=== PATIENT | male | born 1980 | race Hispanic/Latino ===

== ENCOUNTER 2025-07-04 08:52 | Emergency (ER) | payer OTHER, SELFPAY ==
[2025-07-04 09:00] VITALS: BP 153/97; PULSE 60; RESP 17; TEMP 36.5; O2SAT 100
--- NOTE | 2025-07-04 10:31 | ED.GENADULT ---
HPI - General Adult General Chief complaint: Eye Problems Stated complaint: piece of fiberglass in R. eye Time Seen by Provider: 07/04/25 09:37 History of Present Illness HPI narrative: 45-year-old male presents to the emergency department for evaluation for foreign body and the right eye. 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 Patient was having some irritation of the right eye and felt that it was persistent. Patient denies any change in vision Related Data Allergies Allergy/AdvReac Type Severity Reaction Status Date / Time No Known Allergies Allergy Mild Verified 08/22/10 11:40 Review of Systems Review of Systems: All systems reviewed & are unremarkable except as noted in HPI and below Exam Narrative: APPEARANCE: Well appearing, no pain, no distress, well-nourished. HEAD: normocephalic, atraumatic. EYES: Metallic foreign body and the 7 o'clock position of the outer edge of the cornea. After removal the foreign body rust ring does still remain this is not overlying the pupil. NOSE: Normal no drainage EARS:TMS clear with good light reflex. THROAT: Pharynx clear, no exudate. NECK: Supple. No adenopathy, no masses. RESPIRATORY: Airway patent, respirations nonlabored. Clear to auscultation bilaterally, no rales, rhonchi, wheezing. CARDIOVASCULAR: Regular rate and rhythm without murmurs rubs or gallops. ABDOMINAL: Soft, nontender, nondistended, normal bowel sounds MUSCULOSKELETAL: Moves all extremities. Strength/ROM intact, No edema, No calf tenderness. NEURO: Alert. Cranial nerves II through XII intact. Good gait. Good coordination Course Vital Signs Vital signs: Vital Signs Temperature 97.7 F 07/04/25 09:00 Pulse Rate 60 07/04/25 09:00 Respiratory Rate 17 07/04/25 09:00 Blood Pressure 153/97 H 07/04/25 09:00 Pulse Oximetry 100 07/04/25 09:00 Oxygen Delivery Room Air 07/04/25 09:00 Temperature 97.7 F 07/04/25 09:00 Pulse Rate 60 07/04/25 09:00 Respiratory Rate 17 07/04/25 09:00 Blood Pressure 153/97 H 07/04/25 09:00 Pulse Oximetry 100 07/04/25 09:00 Oxygen Delivery Room Air 07/04/25 09:00 Procedures FB Removal Eye Foreign Body #1: Foreign Body Removal Date: 07/04/25 Foreign Body Removal Time: 10:33 Time Out performed: Yes Location: eye (R) Topical anesthetic used: tetracaine Foreign body: metal Evidence of corneal penetration: No Technique: cotton tip swab and needle Procedure performed under: direct visualization with magnification and slit-lamp Post-procedure medication: ophthalmic antibiotic Patient tolerated procedure: well and no complications Complications: residual rust ring Medical Decision Making MDM Narrative Medical decision making narrative: 45-year-old male presents emergency department for evaluation for a foreign body sensation in the right eye. Patient did have metallic foreign body that was removed as described in the procedure note. Patient does have a residual rust ring. Patient's tetanus was updated and patient was started on antibiotics. Patient was encouraged to have close follow-up with Ophthalmology. All questions concerns were addressed. Differential Diagnosis Differential Diagnosis: Corneal injury, foreign body, metallic foreign body, corneal penetration, corneal abrasion Vital Signs Vital Signs: Vital Signs Temperature 97.7 F 07/04/25 09:00 Pulse Rate 60 07/04/25 09:00 Respiratory Rate 17 07/04/25 09:00 Blood Pressure 153/97 H 07/04/25 09:00 Pulse Oximetry 100 07/04/25 09:00 Oxygen Delivery Room Air 07/04/25 09:00 Temperature 97.7 F 07/04/25 09:00 Pulse Rate 60 07/04/25 09:00 Respiratory Rate 17 07/04/25 09:00 Blood Pressure 153/97 H 07/04/25 09:00 Pulse Oximetry 100 07/04/25 09:00 Oxygen Delivery Room Air 07/04/25 09:00 Discharge Plan Discharge Clinical Impression: Foreign body in eye, Corneal rust ring Patient Disposition: Home Condition: Stable Instructions: Antibiotic Form, Eye Foreign Body (ED) Additional Instructions: The metallic foreign body was removed from your eye but you do still have a residual rust ring on the edge of the cornea. Antibiotic ointment as directed. Your tetanus was updated in the emergency department. You will need to have close follow-up with Ophthalmology, you may call any manager cardiology to try and schedule follow-up but [facility] was added to your discharge instructions. If you have any worsening symptoms then please call or return to the emergency department. Patient Language: Albanian Prescriptions: New erythromycin 5 mg/gram (0.5 %) ointment 0.5 inch RIGHT EYE TID Qty: 3.5 0RF Follow-up/Referrals: [facility] [Outside] PHYSICIAN,JEWEL OLIVING MACHINE OPERATOR [Primary Care Provider, Internal Medicine]
[2025-07-04] MEDS: TETANUS,DIPHTHERIA,AC PERTUSSIS ADULT (0.5 ML) BOOSTRIX IM (11:14)
[2025-07-04] MEDS: ERYTHROMYCIN OPHTH OINTMENT 1 GM TUBE 1 APPLIC RIGHT EYE (11:16)
[2025-07-04] MEDS: FLUORESCEIN SOD 1 MG/STRIP EACH EYE (11:18)
[2025-07-04] MEDS: TETRACAINE HCL 0.5% OPHTH SOLN 4 ML BTL 1 DROP EACH EYE (11:18)
== END 2025-07-04 11:23 | disposition home or self-care (01) ==
PROVIDERS: Emergency Provider Emergency Medicine
DX: T15.01XA Foreign body in cornea, right eye, initial encounter (principal); W44.8XXA Other foreign body entering into or through a natural orifice, initial encounter; Z23 Encounter for immunization
CPT/HCPCS: 65220; 90715; 99283; A9270